=== PATIENT | female | born 1965 | race Caucasian/White ===

== ENCOUNTER → 2017-05-05 | Outpatient (CLI) | payer BC ==
[~2017-05-05] MED LIST: AZIT250 PO; HYDMOR2 PO; LEVOTHYROXINE; ONDA4 PO
== END ==
LOC: LAB EV 08:00
DX: A04.8 Other specified bacterial intestinal infections (principal); B96.81 Helicobacter pylori [H. pylori] as the cause of diseases classified elsewhere
CPT/HCPCS: 87338